=== PATIENT | male | born 1950 | race Caucasian/White ===

== ENCOUNTER 2024-12-24 06:43 | Emergency (ER) | payer MEDICARE, OTHER ==
[~2024-12-24] VITALS: Ht 170.2 cm; Wt 89.4 kg
[2024-12-24 06:43] VITALS: TEMP 97.2
[2024-12-24 07:09] LABS: LEUKOCYTE ESTERASE ,URINE NEGATIVE (Neg); NITRITES, URINE NEGATIVE (Neg); OCCULT BLOOD,URINE LARGE (Neg)
[2024-12-24 07:17] LABS: UA COLLECTION TYPE NON-SPECIFIED
[2024-12-24 07:19] LABS: MUCUS STRANDS NONE SEEN /LPF (Neg); SQUAMOUS EPITHELIAL CELL,UR FEW /LPF (FEW)
[2024-12-24 07:29] VITALS: BP 136/61; PULSE 75; O2SAT 98
[2024-12-24 07:34] VITALS: RESP 16
--- NOTE | 2024-12-24 07:40 | Physician Documentation ---
History of Present Illness ~ Chief Complaint: Blood in Urine Stated Complaint: URINATING BLOOD Time Seen by MD: 07:07 Primary Medical Doctor: JENNIFER PATRICIA Source: patient, family Mode of Arrival: Ambulatory HPI 74-year-old male history of prostate cancer status post brachytherapy presenting for painless hematuria. He reports urinating today initially clear followed by bright red blood. He had no associated symptoms no pain and no difficulty urinating no dysuria. He urinated here while in the emergency department and reports that his urine is clearing. He also is complaining of rash to his left upper extremity ongoing 3 weeks. Initially pruritic followed by burning pain. Reports that it is healing Reviewed history and physical June 16, 2010 Past Medical History Past Medical History: Hypertension, Anxiety, Depression Alcohol Use: Occasionally Drug Use: none Lives with: S/O Lives In: Home Occupation: unemployed Review of Systems All Other Systems at this time: Reviewed and Negative ROS Negative nausea vomiting fever chills chest pain shortness of breath abdominal pain flank pain dysuria diarrhea hematuria penile discharge rectal pain Physical Exam Vital Signs: Temperature: 97.2, Source: Temporal, Heart Rate: 75, Respiratory R ate: 16, BP: 136/61, Pulse Oximetry: 98, Weight: 89.410 Oxygen Flow Rate: 0 Physical Exam Well-appearing no acute distress resting comfortably in bed Moist mucous membranes no JVD Breathing comfortably no distress Abdomen is soft nontender No CVA tenderness Awake alert oriented Skin healing vesicular rash left forearm and left upper arm. Scabbed over vesicles. No erythema. No purulence Progress Results/Orders Reviewed/noted all lab results: Yes Results/Orders Completed Orders - YOEL RESENDIZ MD Ua W/Microscopic, Cult If Ind (12/24/24 06:50) Vital Signs 12/24/24 12/24/24 12/24/24 06:43 07:29 07:34 Temp 97.2 Pulse 84 75 Resp 16 15 16 B/P (MAP) 172/80 136/61 (86) Pulse Ox 99 98 O2 Flow Rate 0 Laboratory Tests Test 12/24/24 06:50 Urine Specimen Description Non-specified Urine Color Yellow Urine Clarity Clear Urine pH 6.0 Urine Specific Harvey 1.010 Urine Protein Trace Urine Glucose (UA) Negative Urine Ketones Negative Urine Occult Blood Large H Urine Nitrite Negative Urine Bilirubin Negative Urine Urobilinogen 0.2 Urine Leukocyte Esterase Negative Urine RBC 20-50 Urine WBC 0-4 Urine Squamous Epithelial Cells Few Urine Bacteria Few Urine Mucus None seen Urine Culture Indicated Not ind Volume Urine Centrifuged 10 ml Urine Comment Medical Decision Making Additional information obtaine: old records Findings a Urinary Diff Dx:Considerations: Include: Other Genital Diff Dx:Considerations: Include: Other Departure Disposition: 01 HOME / SELF CARE / HOMELESS Impression: Primary Impression: Hematuria Qualified Codes: R31.1 - Benign essential microscopic hematuria Additional Impression: Shingles Qualified Codes: B02.9 - Zoster without complications Additional Impression Text Patient presents today history of prostate cancer AFib on Eliquis presenting for painless hematuria. Reports that urine is spontaneously clearing on its own. His exam is benign. His vitals are normal. He has appointment with his urologist in 2 weeks. He is also complaining of rash was upper extremity ongoing 3 weeks which has been healing. I evaluated the rash and it does appear to be healing vesicular rash likely shingles. Advised continued conservative management follow up with his PCP Referrals: NO PRIMARY CARE PROVIDER (PCP) Signature Scribe Signature: None Attestation: None YOEL RESENDIZ MD Dec 24, 2024 07:40
== END 2024-12-24 08:14 | disposition home or self-care (01) ==
LOC: ER 06:43
DX: R31.9 Hematuria, unspecified (principal); B02.9 Zoster without complications; I48.91 Unspecified atrial fibrillation; I10 Essential (primary) hypertension; F41.9 Anxiety disorder, unspecified; F32.A Depression, unspecified; Z72.89 Other problems related to lifestyle; Z56.0 Unemployment, unspecified; Z85.46 Personal history of malignant neoplasm of prostate
CPT/HCPCS: 81001; 99283